=== PATIENT | female | born 1975 | race Caucasian/White ===

== ENCOUNTER 2016-06-06 12:53 | Emergency (ER) | payer OTHER ==
[~2016-06-06 12:53] MED LIST: ALLEGRA; AMOXICILLIN; ANSAID100 MG PO; DIFLUCAN PO; DIUREX PO; FIORICET1 TAB PO; IBUPROFEN800 MG PO; LODINE XL PO; LOMOTIL TABLET1 TAB PO; NO MEDICATIONS; PHENERGAN25 MG PO; PRILOSEC20 MG PO; SUDAFED60 MG
[2016-06-06 13:15] LABS: URINE SOURCE CLEAN CATCH
[2016-06-06 13:17] LABS: URINE APPEARANCE CLEAR; URINE BILIRUBIN NEG (NEG); URINE BLOOD NEG (NEG); URINE COLOR YELLOW; URINE GLUCOSE NEG (NORM); URINE KETONE 1+ (NEG); URINE LEUKOCYTE ESTERASE NEG (NEG); URINE NITRATE NEG (NEG); URINE PROTEIN NEG (NEG); URINE SPECIFIC GRAVITY 1.015 (1.003-1.035)
[2016-06-06 13:20] LABS: MICRO INDICATED? NO
== END 2016-06-06 14:33 | disposition home or self-care (01) ==
LOC: SED 12:53
PROVIDERS: Emergency Medicine
DX: K29.00 Acute gastritis without bleeding (principal); B34.9 Viral infection, unspecified; R51 Headache
CPT/HCPCS: 81003; 84703; 96361; 96374; 96375; 99284; J1885; J2405

== ENCOUNTER 2016-08-30 16:01 | Emergency (ER) | payer OTHER ==
--- NOTE | ~2016-08-30 | CT52 ---
[facility] A Service [facility] RADIOLOGY TEXT RESULTS PATIENT: HAYLEE LEBLANC LOCATION: SED : 75 UNIT #: [id number] AGE: [address]: BRITTANI TABOR SEX: F ORDER DR: [id number] [place] [id number] E MR#: [id number] Acc #: [id number] NAME: HAYLEE LEBLANC. : 1975 SEX: F STUDY DATE/TIME: 08/30/2016 17:28 UNIT: SED ROOM: STUDY DESCRIPTION: CT Cervical Spine Wo Cont Ordering Physician: [facility] Primary Care Physician: Maximus Foreman M.D. MEDICAL IMAGING REPORT This report is preliminary unless electronic signature is present. EXAM CT cervical spine without contrast 08/30/2016 HISTORY Passed out. Head and neck pain. Pain on right side of face. COMPARISON None. TECHNIQUE 2 mm noncontrast axial images through the cervical spine. Sagittal and coronal reformatted images were obtained. This CT exam was performed with one or more of the following radiation dose reduction techniques: automatic exposure control, adjustment of mA and/or kV according to patient size, and iterative reconstruction. FINDINGS The craniocervical junction is intact. Cervical vertebral bodies demonstrate normal height and alignment. No acute cervical spine fracture or subluxation is seen. No high-grade canal or foraminal stenosis is seen. Paraspinal soft tissues appear grossly unremarkable. IMPRESSION 1. Normal CT of the cervical spine. Dictated by... Giuliana Soto M.D. THIS IS AN ELECTRONICALLY VERIFIED REPORT Giuliana Soto M.D. at 09/03/2016 8:40 AM [facility] A Service [facility] RADIOLOGY TEXT RESULTS PATIENT: HAYLEE LEBLANC LOCATION: SED : 75 UNIT #: [id number] AGE: [address]: BRITTANI TABOR SEX: F ORDER DR: Trevon TD: 08/30/2016 23:24 JOB #: [id number] MEDICAL IMAGING REPORT Page 1 of 1
--- NOTE | ~2016-08-30 | CT71 ---
[facility] A Service of [facility] RADIOLOGY TEXT RESULTS PATIENT: HAYLEE LEBLANC LOCATION: SED : 75 UNIT #: [id number] AGE: [address]: JORGE ALBERTO TABOR SEX: F ORDER DR: [id number] [place] [id number] E MR#: [id number] Acc #: [id number] NAME: HAYLEE LEBLANC. : 1975 SEX: F STUDY DATE/TIME: 08/30/2016 17:18 UNIT: SED ROOM: STUDY DESCRIPTION: CT Head Wo Contrast Attending Physician: (Er)jorge alberto Tabor Referring Physician: (Er) Jorge Alberto Tabor Ordering Physician: Jadon Mccann M.D. Primary Care Physician: Maximus Foreman M.D. MEDICAL IMAGING REPORT This report is preliminary unless electronic signature is present. EXAMINATION CT head without contrast. DATE 08/30/2016 HISTORY 41-year-old female who passed out today. Head and neck pain. Pain in the right side of head and face. COMPARISON Noncontrast CT head, 04/19/2014. TECHNIQUE This CT exam was performed with one or more of the following radiation dose reduction techniques: automatic exposure control, adjustment of mA and/or kV according to patient size, and iterative reconstruction. FINDINGS No acute intracranial hemorrhage, mass lesion, mass effect or midline shift is seen. There is no CT evidence of acute or evolving infarct. Ventricular configuration is within normal limits. No displaced calvarial fracture is identified. Paranasal sinuses and mastoid air cells appear clear. IMPRESSION 1. No acute intracranial findings. Dictated by... Giuliana Soto M.D. THIS IS AN ELECTRONICALLY VERIFIED REPORT [facility] A Service [facility] RADIOLOGY TEXT RESULTS PATIENT: HAYLEE LEBLANC LOCATION: SED : 75 UNIT #: [id number] AGE: [address]: JORGE ALBERTO TABOR SEX: F ORDER DR: Giuliana Soto M.D. at 09/03/2016 8:40 AM REENA/cruzito TD: 08/30/2016 23:39 JOB #: [id number] MEDICAL IMAGING REPORT Page 1 of 1
--- NOTE | ~2016-08-30 | EKG ---
PATIENT: HAYLEE LEBLANC UNIT #: [id number] Ventricular Rate: 84 BPM Atrial Rate: 84 BPM P-R Interval: 148 ms QRS Duration: 74 ms Q-T Interval: 386 ms QTC Calculation(Bezet): 456 ms P [place]: 33 degrees Calculated R [place]: 36 degrees Calculated T [place]: 39 degrees Diagnosis Line: Normal sinus rhythm Diagnosis Line: Normal ECG Diagnosis Line: Diagnosis Line: Confirmed by FRANCK PETERSON MD ([id number]) on Diagnosis Line: 09/03/2016 3:22:19 PM INTERPRETING MD: NICHOLAS MONTAÑO
[2016-08-30] MEDS ORDERED: CLARITIN PO (16:11)
[2016-08-30] MEDS ORDERED: OMEPRAZOLE PO (16:12)
== END 2016-08-30 19:26 | disposition home or self-care (01) ==
LOC: SED 16:01
DX: F07.81 Postconcussional syndrome (principal); R55 Syncope and collapse; Z98.890 Other specified postprocedural states; Z79.899 Other long term (current) drug therapy; W01.198A Fall on same level from slipping, tripping and stumbling with subsequent striking against other object, initial encounter; Y92.9 Unspecified place or not applicable
CPT/HCPCS: 70450; 72125; 93005; 96372; 99284; J2550

== ENCOUNTER → 2016-10-17 | Outpatient (CLI) | payer OTHER ==
[~2016-10-17] MED LIST changes: +CLARITIN PO; +OMEPRAZOLE PO
--- NOTE | ~2016-10-17 | EKG ---
PATIENT: HAYLEE LEBLANC UNIT #: [id number] Ventricular Rate: 74 BPM Atrial Rate: 74 BPM P-R Interval: 154 ms QRS Duration: 74 ms Q-T Interval: 396 ms QTC Calculation(Bezet): 439 ms P [place]: 31 degrees Calculated R [place]: 39 degrees Calculated T [place]: 50 degrees Diagnosis Line: Normal sinus rhythm Diagnosis Line: Normal ECG Diagnosis Line: When compared with ECG of 30-AUG-2016 16:02, Diagnosis Line: No significant change was found Diagnosis Line: Confirmed by FRANCK PETERSON MD ([id number]) on Diagnosis Line: 10/18/2016 9:03:57 AM INTERPRETING MD: NICHOLAS MONTAÑO
--- NOTE | ~2016-10-17 | CR63 ---
[facility] A Service of [facility] RADIOLOGY TEXT RESULTS PATIENT: HAYLEE LEBLANC LOCATION: [facility] : 75 UNIT #: [id number] AGE: [address]: Crow Perez DPM SEX: F ORDER DR: [id number] [facility] [address] [place], [place] [address] [id number] O MR#: [id number] Acc #: [id number] NAME: HAYLEE LEBLANC. : 1975 SEX: F STUDY DATE/TIME: 10/17/2016 13:47 UNIT: [facility] ROOM: STUDY DESCRIPTION: CR Chest 2 View Attending Physician: Crow Perez D.P.M. Referring Physician: Crow Perez D.P.M. Ordering Physician: Crow Perez D.P.M. Primary Care Physician: Maximus Foreman M.D. MEDICAL IMAGING REPORT This report is preliminary unless electronic signature is present EXAM Chest PA and lateral 10/17/2016 HISTORY Preop foot surgery 11/05/2016. FINDINGS PA and lateral examination of the chest upright shows a good expansion of the parenchyma with a normal distribution of the pulmonary vascularity. There is no indication of congestion, effusion, infiltrate, tumor, or nodular density. The pleural reflections and diaphragmatic contours are normal. The cardiac silhouette and mediastinal anatomy is within normal limits. IMPRESSION Normal chest. Dictated by... Aron Obrien M.D. THIS IS AN ELECTRONICALLY VERIFIED REPORT Aron Obrien M.D. at 10/18/2016 7:21 AM LINK/chao TD: 10/17/2016 18:43 JOB #: [id number] MEDICAL IMAGING REPORT Page 1 of 1 COPY
[2016-10-17 13:43] LABS: HEMATOCRIT 39.3 % (35.0-45.0); HEMOGLOBIN 13.7 gm/dL (12.0-16.0); MEAN CELL VOLUME 90.4 FL (83-96); MEAN CORPUSCULAR HEMOGLOBIN 31.4 PG (28-34); MEAN CORPUSCULAR HGB CONC 34.7 g/dL (30-36); MEAN PLATELET VOLUME 8.2 FL (6.5-11.5); RED BLOOD COUNT 4.35 X10e (3.90-5.30); RED CELL DISTRIBUTION WIDTH 12.4 % (11.0-15.5); WHITE BLOOD COUNT 8.5 X10e3 (4.0-10.5)
[2016-10-17 14:43] LABS: BUN/CREATININE RATIO 13.75; CREATININE SERUM 0.8 mg/dL (0.6-1.4); GLOM FILT RATE Estimated 91.7 mL/min (>60); POTASSIUM 4.1 mmol/L (3.5-5.1)
== END | disposition home or self-care (01) ==
LOC: CEKG 13:17
PROVIDERS: Podiatrist Foot & Ankle Surgery
DX: Z01.818 Encounter for other preprocedural examination (principal)
CPT/HCPCS: 36415; 71020; 80048; 85027; 93005